=== PATIENT | male | born 1945 | race Caucasian/White ===

== ENCOUNTER 2019-03-18 06:28 | Day surgery (SDC) | payer MEDICARE, OTHER ==
[2019-03-18] MEDS ORDERED: Lidocaine 1% with EPINEPHrine 1:100,000 50 ML MDV ONE (06:56)
[2019-03-18] MEDS ORDERED: Bupivacaine 0.5% 50 ML MDV ONE (06:56)
[2019-03-18] MEDS ORDERED: Sodium Chloride 0.9% 1,000 ML IV SCH (07:15)
[2019-03-18] MEDS ORDERED: metroNIDAZOLE/Normal Saline 500 MG in Premix Bag 1 BAG IV ONE (07:30)
[2019-03-18] MEDS ORDERED: ceFAZolin 2 GM in Sodium Chloride 0.9% 50 ML IV ONE (07:30)
[2019-03-18] MEDS ORDERED: ceFAZolin 2 GM in Premix Bag 1 BAG IV ONE (07:30)
[2019-03-18] MEDS ORDERED: fentaNYL 250 MCG/5 ML SDV ONE ×2 (07:42→10:23)
[2019-03-18] MEDS ORDERED: Glycopyrrolate 0.2 MG/ML 5 ML MDV ONE (07:43)
[2019-03-18] MEDS ORDERED: Ondansetron 4 MG/2 ML SDV ONE (07:43)
[2019-03-18] MEDS ORDERED: Dexamethasone 4 MG/ML SDV ONE (07:43)
[2019-03-18] MEDS ORDERED: Succinylcholine 200 MG/10 ML MDV ONE (07:43)
[2019-03-18] MEDS ORDERED: Propofol 200 MG/20 ML SDV ONE (07:43)
[2019-03-18] MEDS ORDERED: Rocuronium 50 MG/5 ML Vial ONE (07:43)
[2019-03-18] MEDS ORDERED: Neostigmine Methylsulfate 1 MG/ML 5 ML Syringe ONE (07:43)
[2019-03-18] MEDS ORDERED: Ropivacaine 36 ML, dexAMETHasone 8 MG, EPINEPHrine 0.4 MG, Sodium Chloride 0.9% 41.6 ML NERVRT SCH ×4 (08:00)
[2019-03-18] MEDS ORDERED: Labetalol 20 MG/4 ML Syringe ONE (08:43)
[2019-03-18] MEDS ORDERED: fentaNYL 100 MCG/2 ML SDV IVPUSH ONE (09:19)
[2019-03-18] MEDS ORDERED: Morphine 2 MG/ML Syringe IVPUSH PRN (10:10)
[2019-03-18] MEDS ORDERED: Scopolamine 1.5 MG Transdermal Patch TRDERM PRN (11:05)
[2019-03-18] MEDS ORDERED: Ondansetron 4 MG/2 ML SDV IVPUSH ONE (11:06)
--- NOTE | 2019-03-18 11:37 | OR ---
DATE OF PROCEDURE: 03/18/2019 PROCEDURE PERFORMED: Right total extraperitoneal hernia repair. FINDING: Incarcerated indirect inguinal hernia. COMPLICATIONS: None. RECEPTIONIST SCHEDULER: None. ANESTHESIA: General. RISKS: Risks, benefits, alternatives, and limitations including, but not limited to, infection, bleeding, and perforation along with testicular injury, requirement for open surgery, seroma, hematoma, and other general surgery risks such as myocardial infarction and stroke were explained. The patient wished to proceed. Testicular loss was also discussed. PROCEDURE IN DETAIL: The patient was placed in supine position. Infraumbilical midline linear incision was made of approximately 1 cm in size. This was carried down with electrocautery and [employer] to the external fascia. This was opened with electrocautery. The muscles were reflected. The preperitoneal space was enlarged with a Pean. The balloon was introduced and subsequently insufflated with approximately 30 pounds. This was held for 2 minutes. This was under direct visualization with the camera. The dissecting balloon was removed. The preperitoneal space was inflated. An indirect incarcerated inguinal hernia was noted. Using the classic lateral to medial, avascular plane dissection technique was performed. This was then performed in conjunction with identification of the classic anatomical structures such as pubic symphysis, epigastric arteries, and others. The hernia was then identified and its peritoneum was able to be deflected using blunt dissection. Once this was achieved, no abnormal bleeding was noted. Pressure was dropped to verify this. At no time was the "triangle of doom" nor "the triangle of pain" interacted with them anyway. The cord structures were identified and deflected medially and not interacted with. The mesh was cut to place, inserted, and unfolded with approximately 1 to 2 cm overlap of the pubic symphysis directly over the hernia defect itself. The air was deflated while holding the mesh in place. The fascia was closed with #1 Vicryl interrupted sutures. Subcutaneous tissues were closed with Vicryl sutures. Skin was closed with 4-0 Vicryl after irrigation and Dermabond was applied. The patient tolerated the procedure well. Jorge Gutiérrez MD /[id number]
--- NOTE | 2019-03-18 12:52 | OR ---
DATE OF PROCEDURE: 03/18/2019 PROCEDURE: Transversus abdominis plane block, bilateral. COMPLICATIONS: None. PUBLIC IMPROVEMENT INSPECTOR: None. RISKS: Risks, benefits, alternatives, and limitations including, but not limited to infection, bleeding, injury to anatomical structures such as bowel, bladder, nerves, and others not listed here were explained to the patient, who wished to proceed. PROCEDURE IN DETAIL: The patient was placed in supine position. The left side was identified first. Using 11 megahertz ultrasound guidance, the needle was introduced and injected into transversus plane. The entire content was injected under direct visualization. The right side was then performed in the same manner, same fashion, same technique, in the same sequence, and using the same equipment, except for different needle and syringe. Dressings were applied. The patient tolerated the procedure well. Jorge Gutiérrez MD /[id number]
== END 2019-03-18 12:05 | disposition home or self-care (01) ==
LOC: JP.SDS 06:28
PROVIDERS: ATTEND Surgery
DX: K40.30 Unilateral inguinal hernia, with obstruction, without gangrene, not specified as recurrent (principal); I10 Essential (primary) hypertension; I25.10 Atherosclerotic heart disease of native coronary artery without angina pectoris; K21.9 Gastro-esophageal reflux disease without esophagitis; E78.5 Hyperlipidemia, unspecified; Z95.5 Presence of coronary angioplasty implant and graft; Z91.010 Allergy to peanuts; Z91.030 Bee allergy status; Z88.5 Allergy status to narcotic agent; Z88.6 Allergy status to analgesic agent; Z79.82 Long term (current) use of aspirin; Z79.899 Other long term (current) drug therapy
CPT/HCPCS: 49507; A9270; C1781; J0171; J0330; J0690; J1100; J2270; J2405; J2704; J2710; J2795; J3010; J3490; J7030; J7050

== ENCOUNTER 2022-10-19 10:36 | Emergency (ER) | payer MEDICARE, OTHER ==
[2022-10-19 11:47] LABS: CORONAVIRUS COVID-19 NAA NEGATIVE (NEGATIVE)
[2022-10-19 12:04] LABS: ESTIMATED GFR 69 mL/min (>60)
[2022-10-19] MEDS ORDERED: Sodium Chloride 0.9% 10 ML Syringe FLUSH PRN (13:57)
[2022-10-19] MEDS ORDERED: Sodium Chloride 0.9% 1,000 ML IV SCH (14:00)
[2022-10-19] MEDS ORDERED: Sodium Chloride 0.9% 100 ML IV SCH (14:15)
[2022-10-19] MEDS ORDERED: Iopamidol 755 Mg/ML 100 ML Bottle IV SCH (14:15)
[2022-10-19] MEDS ORDERED: Aspirin 81 MG Tab.Chew PO ONE (16:20)
[2022-10-19] MEDS ORDERED: Heparin Sodium 5,000 Units/ML Vial IVPUSH ONE (16:20)
[2022-10-19] MEDS ORDERED: Heparin Sodium/D5W 25,000 UNITS/500 ML BAG IV SCH (16:30)
== END 2022-10-19 17:29 ==
LOC: JP.ED 10:36
DX: I24.9 Acute ischemic heart disease, unspecified (principal); R77.8 Other specified abnormalities of plasma proteins; I25.10 Atherosclerotic heart disease of native coronary artery without angina pectoris; E78.00 Pure hypercholesterolemia, unspecified; I10 Essential (primary) hypertension; K21.9 Gastro-esophageal reflux disease without esophagitis; Z91.030 Bee allergy status; Z91.010 Allergy to peanuts; Z88.5 Allergy status to narcotic agent; Z79.82 Long term (current) use of aspirin; Z79.899 Other long term (current) drug therapy; Z20.822 Contact with and (suspected) exposure to COVID-19
CPT/HCPCS: 0241U; 36415; 71046; 71275; 80053; 83605; 83880; 84484; 85025; 93005; 96361; 96365; 96376; 99284; A9270; J1644; J3490; J7030; Q9967